=== PATIENT | male | born 1990 | race Caucasian/White ===

== ENCOUNTER 2020-04-27 | Emergency (ER) | payer OTHER ==
[~2020-04-27] VITALS: Ht 182.9 cm; Wt 82.6 kg
--- NOTE | 2020-04-27 00:15 | NUR ---
PT B[place] FROM STREETS FOR BIZARRE BEHAVIOR. POLICE STATES "PT WAS ACTING WEIRD". SAFETY PRECAUTIONS IMPLEMENTED. PT CHANGED INTO GOWN, BELONGINGS PLACED TO LOCKER. SITTER AT BEDSIDE FOR SAFETY.
--- NOTE | 2020-04-27 00:22 | NUR ---
PT DENIES SI/HI. PT CALM AND COOPERATIVE. DR WORKMAN AT BEDSIDE
--- NOTE | 2020-04-27 00:23 | NUR ---
FOOD PREPARATION WORKER AT BEDSIDE FOR BLOOD DRAW
[2020-04-27 00:38] LABS: BASOPHILS # (AUTO) 0.1 /CMM (0.0-0.2); BASOPHILS % (AUTO) 0.9 % (0.0-2.0); HEMATOCRIT 41 % (39-51); HEMOGLOBIN 13.4 g/dL (13.5-17.5); LYMPHOCYTES # (AUTO) 2.6 /CMM (0.8-4.8); LYMPHOCYTES % (AUTO) 23.1 % (20.0-44.0); MEAN CORPUSCULAR HGB CONC 33 g/dl (31.0-36.0); MEAN CORPUSCULAR VOLUME 80 fL (80-96); MONOCYTES # (AUTO) 1.2 /CMM (0.1-1.30); MONOCYTES % (AUTO) 10.4 % (2.0-12.0); NEUTROPHILS # (AUTO) 6.8 /CMM (1.8-8.9); NEUTROPHILS % (AUTO) 61.6 % (43.0-81.0); PLATELET COUNT (AUTO) 308 /CMM (150-450); RED BLOOD CELL COUNT(AUTO) 5.12 MIL/uL (4.5-6.0); WHITE BLOOD COUNT (AUTO) 11.1 K/uL (4.3-11.0)
--- NOTE | 2020-04-27 00:45 | NUR ---
URINE COLLECTED AND SENT TO LAB
[2020-04-27 00:55] LABS: APPEARANCE,URINE CLEAR (CLEAR); BILIRUBIN,URINE NEGATIVE (NEGATIVE); BLOOD, URINE NEGATIVE Ery/uL (NEGATIVE); COLOR,URINE DARK YELLO (YELLOW); KETONES,URINE NEGATIVE (NEGATIVE); LEUKOCYTE ESTERASE ,URINE NEGATIVE (NEGATIVE); NITRITE, URINE NEGATIVE (NEGATIVE); PROTEIN,URINE NEGATIVE (NEGATIVE); UGLUCOSE NEGATIVE (NEGATIVE); UROBILINOGEN,URINE 0.2 EU/dL (0.2)
[2020-04-27 01:02] LABS: ACETAMINOPHEN 0 ug/ml (10-30); ALANINE AMINOTRANSFERASE 186 U/L (12-78); ALBUMIN 3.7 g/dL (3.4-5.0); ALCOHOL, BLOOD < 3 mg/dL (0-0); ALKALINE PHOSPHATASE 114 U/L (46-116); ASPARTATE AMINOTRANSFERASE 76 U/L (15-37); BILIRUBIN,DIRECT 0.1 mg/dL (0.0-0.2); BILIRUBIN,TOTAL 0.4 mg/dL (0.2-1.0); CALCIUM, SERUM 8.9 mg/dL (8.5-10.1); CARBON DIOXIDE 23 mmol/L (21-32); CHLORIDE 99 mmol/L (98-107); CREATININE 0.9 mg/dL (0.6-1.3); GLUCOSE 110 mg/dL (74-106); SALICYLATE 1.7 mg/dL (2.8-20.0); SODIUM SERUM 133 mmol/L (136-145); TOTAL PROTEIN, SERUM 7.7 g/dL (6.4-8.2); UREA NITROGEN, BLOOD 18 mg/dL (7-18)
--- NOTE | 2020-04-27 01:23 | NUR ---
ART, CRISIS TEAM RESEARCH TEST ENGINE OPERATOR AT BEDSIDE
[2020-04-27] MEDS ORDERED: OLANZAPINE 5 MG TABLET ONE (01:26)
[2020-04-27] MEDS ORDERED: OLANZAPINE 5 MG TABLET PO ONE (01:30)
--- NOTE | 2020-04-27 04:03 | NUR ---
Patient discharged to home in stable condition. Written and verbal after care instructions given. Patient verbalizes understanding of instruction. Pt ambulated with steady gait. vss.
[2020-04-27 04:14] VITALS: BP 131/72
== END 2020-04-27 04:14 | disposition home or self-care (01) ==
LOC: ER 00:02
DX: F19.10 Other psychoactive substance abuse, uncomplicated (principal); F17.210 Nicotine dependence, cigarettes, uncomplicated; J45.909 Unspecified asthma, uncomplicated; F41.9 Anxiety disorder, unspecified
CPT/HCPCS: 36415; 80048; 80076; 80305; 80307; 80329; 81001; 85025; 99285; 99406; G0480; 81000-TC